=== PATIENT | female | born 2000 | race Caucasian/White ===

== ENCOUNTER 2025-05-23 19:22 | Emergency (ER) | payer OTHER, SELFPAY ==
--- NOTE | ~2025-05-23 | XR_ITS ---
EXAMINATION: XR ankle LT min 3V DATE: 05/23/2025 19:43 INDICATION: Trauma due to fall. Lateral ankle pain. TECHNIQUE: 4 views of left ankle were obtained. COMPARISON: None. FINDINGS: Old avulsion fracture of tip of lateral malleolus is noted. Soft tissue changes on the lateral aspect of the ankle suggestive of sprained lateral ligament. Minimal widening of ankle mortise is suggested. No acute soft tissue abnormalities. Evidence of old avulsion fracture of the dorsal anterior aspect of talus. IMPRESSION: 1. Old avulsion fractures of tip of lateral malleolus and anterior superior talus. 2. Soft tissue changes suggestive of sprained lateral ligament. Mild widening of ankle mortise. If symptoms are persistent and not responding to conservative treatment, MRI is suggested. Reviewed, dictated and finalized at location [employer]. [employer] IMPRESSION: 1. Old avulsion fractures of tip of lateral malleolus and anterior superior ma[place] us. 2. Soft tissue changes suggestive of sprained lateral ligament. Mild widening o f ankle mortise. If symptoms are persistent and not responding to conservative treatment, MRI is suggested.
[2025-05-23 19:26] VITALS: BP 147/91; PULSE 101; RESP 18; TEMP 36.3; O2SAT 99
--- NOTE | 2025-05-23 19:27 | ED_ITS ---
HPI - Fall General Chief Complaint: Extremity Injury, Lower Stated Complaint: fall Time Seen by Provider: 05/23/25 19:27 Source: patient and family Mode of arrival: ambulatory Limitations: no limitations History of Present Illness HPI Narrative: Patient is a 25-year-old female 6 months who missed the last step on a stairwell and proceeded to fall forward and her left ankle took most of the force and twisted as she landed in a hands and knees fashion. There was no trauma to the baby/fetus. No abdominal pain or vaginal discharges. No contractions. MD complaint: fall Onset (ago): minute(s) (Thirty) Fall from: down stairs (#) (One; last stair) Fall witnessed: no Place fall occurred: home Loss of consciousness: none Prolonged down time: no Symptoms prior to fall: none Context: tripped/slipped Location of injury: other (Left ankle lateral aspect) Severity: severe Severity scale (1-10): 7 Quality: sharp and throbbing Associated symptoms (after fall): denies Related Data Allergies Allergy/AdvReac Type Severity Reaction Status Date / Time No Known Allergies Allergy Verified 05/23/25 19:28 Review of Systems Review of Systems: All systems reviewed & are unremarkable except as noted in HPI and below Constitutional: Constitutional: Reports no additional constitutional complaints Eyes: Eyes: Reports no additional eye complaints ENT: Reports system reviewed and no additional complaints, except as documented Cardiovascular: Cardiovascular: Reports no additional cardiovascular complaints Respiratory: Respiratory: Reports no additional respiratory complaints Gastrointestinal: Gastrointestinal: Reports no additional gastrointestinal complaints Genitourinary: Genitourinary: Reports no additional female genitourinary complaints Musculoskeletal: Musculoskeletal: Reports no additional musculoskeletal complaints Integumentary/Breasts: Skin/Breast: Reports system reviewed and no additional complaints, except as docu Neurologic: Reports system reviewed and no additional complaints, except as documented Psychiatric: Psychiatric: Reports no additional psychiatric complaints Endocrine: Endocrine: Reports no additional endocrine complaints Hematologic/Lymphatic: Hematologic/Lymphatic: Reports no additional hematologic/lymphatic complaints Allergic/Immunologic: Allergic/Immunologic: Reports no additional allergic/immunologic complaints Exam Const: General: healthy appearing Nutritional Appearance: well nourished Orientation/consciousness: patient oriented x3 HENMT: Head: normal to inspection Ears: external ears normal Face/Nose/Sinus: Normal external nose present Eyes: Conjunctivae: conjunctivae normal Pupils: Equal, round and reactive pupils present EOM: EOMs intact bilaterally Neck: Neck: normal visual inspection Chest: Chest palpation & inspection: normal inspection of the chest Resp: Effort & Inspection: normal respiratory effort and not labored Auscul tation: clear to auscultation bilaterally and no crackles Cardio: Rate: regular rate Rhythm: regular rhythm Heart sounds: no murmurs GI: Inspection: distended GI Palp: Yes Soft to palpation, No Tenderness to palpation present (GI), No Guarding due to palpation present (GI), No Rigid due to palpation, No Hernia present, No Palpable mass present and No Rebound tenderness present Auscultation: normal bowel sounds : General: Yes bladder normal to palpation Back/Spine/Pelvis: Back: no CVA tenderness Skin: General skin exam: normal color Rashes: no rashes Wounds: no wounds Neuro: General: patient oriented x3, moves all extremities and no meningeal signs Extrem: General: normal to inspection, no clubbing, cyanosis or edema and no pedal edema Other: Lateral left ankle is tender to palpation at the malleolus all the way down to mid foot with lateral aspect and some small nodularity/hematoma with ecchymosis Psych: Mental Status: mental status grossly normal Affect: normal affect, Sad affect present and Anxious affect present Attitude: cooperative Course Vital Signs Vital signs: Vital Signs Temperature 36.3 C L 05/23/25 19:26 Pulse Rate 101 H 05/23/25 19:26 Respiratory Rate 18 05/23/25 19:26 Blood Pressure 147/91 H 05/23/25 19:26 Pulse Oximetry 99 05/23/25 19:26 Oxygen Delivery Room Air 05/23/25 19:26 Temperature 36.3 C L 05/23/25 19:26 Pulse Rate 101 H 05/23/25 19:26 Respiratory Rate 18 05/23/25 19:26 Blood Pressure 147/91 H 05/23/25 19:26 Pulse Oximetry 99 05/23/25 19:26 Oxygen Delivery Room Air 05/23/25 19:26 [facility] MDM Narrative Medical decision making narrative: Patient is a 25-year-old female who is 6 months with a fall after the last step was missed accidentally and fell on her hands and knees without baby trauma. X-ray. Shield patient. Tylenol. heart tones. Reassurance given. No baby trauma so likely no concern for mixing of maternal blood to warrant Rh factor for RhoGAM. Differential Diagnosis Differential Diagnosis: Ankle fracture, leg fracture Imaging Data Attestation: I personally reviewed and interpreted this imaging study as follows: Radiologist's impression: ITS Impressions Ankle X-Ray 05/23/25 19:44 IMPRESSION: 1. Old avulsion fractures of tip of lateral malleolus and anterior superior talus. 2. Soft tissue changes suggestive of sprained lateral ligament. Mild widening of ankle mortise. If symptoms are persistent and not responding to conservative treatment, MRI is suggested. Discharge Plan Discharge Clinical Impression: Left ankle sprain Qualifiers: Encounter type: initial encounter Involved ligament of ankle: other ligament Qualified Code(s): S93.492A - Sprain of other ligament of left ankle, initial encounter Patient Disposition: Home Condition: Stable Instructions: Ankle Sprain (DC) Patient Language: Scottish Follow-up/Referrals: UNKNOWN,DOCTOR [Primary Care Provider] Time of Disposition: 19:53
[2025-05-23] MEDS: ACETAMINOPHEN 500 MG TABLET 1000 MG PO (19:58)
== END 2025-05-23 20:20 | disposition home or self-care (01) ==
PROVIDERS: Emergency Provider Emergency Medicine; Referring Provider Internal Medicine
DX: S93.492A Sprain of other ligament of left ankle, initial encounter (principal); W10.9XXA Fall (on) (from) unspecified stairs and steps, initial encounter; Z3A.00 Weeks of gestation of pregnancy not specified
CPT/HCPCS: 29515; 73610; 99283; A9270; L4350